=== PATIENT | male | born 1970 | race African-American/Black ===

== ENCOUNTER → 2018-03-24 | Outpatient (CLI) | payer OTHER, BC ==
--- NOTE | 2018-03-24 11:34 | RADIOLOGY REPORT (SQ) ---
EXAM DESCRIPTION: CHEST PA/LATERAL COMPLETED DATE/TIME: 03/24/2018 11:18 am REASON FOR STUDY: ENCOUNTER FOR OTHER PREPROCEDURAL EXAMINATION COMPARISON: 03/20/2010 EXAM PARAMETERS: NUMBER OF VIEWS: two views TECHNIQUE: Digital Frontal and Lateral radiographic views of the chest acquired. RADIATION DOSE: NA LIMITATIONS: none FINDINGS: LUNGS AND PLEURA: No opacities, masses or pneumothorax. No pleural effusion. MEDIASTINUM AND HILAR STRUCTURES: No masses or contour abnormalities. HEART AND VASCULAR STRUCTURES: Heart normal size. No evidence for failure. BONES: No acute findings. HARDWARE: None in the chest. OTHER: No other significant finding. IMPRESSION: 1 No significant interval changes since the prior examination dated 03/20/2010. No acute findings. TECHNICAL DOCUMENTATION: JOB ID: [id number] [employer]- All Rights Reserved Reading location - IP/workstation name: [email or web address]
[2018-03-24 11:57] LABS: ABSOLUTE EOSINOPHILS # (AUTO) 0.2 10^3/uL (0.0-0.6); ABSOLUTE LYMPHOCYTES (AUTO) 2.3 10^3/uL (0.5-4.7); ABSOLUTE MONOCYTES (AUTO) 0.5 10^3/uL (0.1-1.4); ABSOLUTE NEUT (AUTO) 2.7 10^3/uL (1.7-8.2); BASOPHILS % (AUTO) 0.7 % (0-2); HEMATOCRIT 41.7 % (37.9-51.0); HEMOGLOBIN 13.9 g/dL (13.5-17.0); LYMPHOCYTES % (AUTO) 39.8 % (13-45); MEAN CORPUSCULAR HEMOGLOBIN 28.2 pg (27.0-33.4); MEAN CORPUSCULAR HGB CONC 33.4 g/dL (32.0-36.0); MEAN CORPUSCULAR VOLUME 84 fl (80-97); MONOCYTES % (AUTO) 8.3 % (3-13); PLATELET COUNT 176 10^3/uL (150-450); RED BLOOD COUNT 4.94 10^6/uL (4.35-5.55); RED CELL DISTRIBUTION WIDTH 12.9 % (11.5-14.0); SEGMENTED NEUTROPHILS % (AUTO) 48.2 % (42-78); TOTAL CELLS COUNTED % (AUTO) 100 %; WHITE BLOOD COUNT 5.7 10^3/uL (4.0-10.5)
[2018-03-24 12:03] LABS: APPEARANCE,URINE CLEAR; BILIRUBIN,URINE NEGATIVE (NEGATIVE); COLOR,URINE YELLOW; GLUCOSE, URINE >=500 mg/dL (NEGATIVE); KETONES,URINE NEGATIVE (NEGATIVE); LEUKOCYTE ESTERASE,URINE NEGATIVE (NEGATIVE); NITRITE,URINE NEGATIVE (NEGATIVE); PROTEIN,URINE NEGATIVE (NEGATIVE); URINE SPECIFIC GRAVITY 1.014; UROBILINOGEN,URINE NEGATIVE mg/dL (<2.0)
[2018-03-24 12:32] LABS: ANION GAP 12 (5-19); BLOOD UREA NITROGEN 15 mg/dL (7-20); CALCIUM 9.9 mg/dL (8.4-10.2); CARBON DIOXIDE 31 mmol/L (22-30); CHLORIDE 97 mmol/L (98-107); GLUCOSE 255 mg/dL (75-110); POTASSIUM 4.3 mmol/L (3.6-5.0); SODIUM 139.9 mmol/L (137-145)
--- NOTE | 2018-03-24 12:45 | EKG REPORT ---
SEVERITY:- NORMAL ECG - SINUS RHYTHM : Confirmed by: Porfirio Hou MD 24-Mar-2018 12:44:24
== END ==
LOC: OD 10:25
PROVIDERS: ATTEND Orthopaedic Surgery
DX: Z01.818 Encounter for other preprocedural examination (principal); E11.9 Type 2 diabetes mellitus without complications
CPT/HCPCS: 36415; 71046; 80048; 81001; 83036; 85025; 93005; 93010

== ENCOUNTER 2018-04-21 08:45 | Inpatient (IN) | payer OTHER, BC ==
[2018-05-19] MEDS ORDERED: VANCOMYCIN HCL 1,000 MG in DEXTROSE 5%-WATER 250 ML IV PRN (05:00)
[2018-05-19] MEDS ORDERED: BUPIVACAINE INJ/PF LIPOSOME/PF 266 MG/20 ML SDV IJ PRN (05:00)
[2018-05-19] MEDS ORDERED: IBUPROFEN 800 MG/NS 250 ML IV PRN ×2 (05:00)
[2018-05-19] MEDS ORDERED: LACTATED RINGERS 1000 ML IV PRN (05:00)
[2018-05-19] MEDS ORDERED: LANSOPRAZOLE 15 MG TAB.RAP.DR PO PRN (05:00)
[2018-05-19] MEDS ORDERED: CEFAZOLIN INJ 1 GM VIAL IV PRN (05:00)
[2018-05-19] MEDS ORDERED: OXYCODONE HCL SR 10 MG TABLET PO PRN (05:00)
[2018-05-19] MEDS ORDERED: LIDOCAINE 0.5% INJ-PF (5 MG/ML) 50 ML SDV SUBCUT PRN (05:00)
[2018-05-19] MEDS ORDERED: OXYCODONE HCL SR 10 MG TABLET PO ONE (05:33)
[2018-05-19] MEDS ORDERED: LANSOPRAZOLE 15 MG TAB.RAP.DR ONE (05:33)
[2018-05-19] MEDS ORDERED: LIDOCAINE 2% INJ-PF (20 MG/ML) 10 ML AMPUL ONE (06:11)
[2018-05-19] MEDS ORDERED: FENTANYL CITRATE INJ/PF 100 MCG/2 ML AMPUL ONE (06:12)
[2018-05-19] MEDS ORDERED: ACETAMINOPHEN 1,000 MG/100 ML RTUPB IV ONE (06:12)
[2018-05-19] MEDS ORDERED: PROPOFOL INJ 200 MG/20 ML VIAL IV ONE (06:12)
[2018-05-19] MEDS ORDERED: ONDANSETRON HCL INJ/PF 4 MG/2 ML SDV ONE (06:12)
[2018-05-19] MEDS ORDERED: MIDAZOLAM 2 MG/2 ML INJ ONE (06:12)
[2018-05-19] MEDS ORDERED: BUPIVACAINE HCL/DEX-WATER/PF 15 MG/2 ML AMPULE ONE (06:14)
[2018-05-19 06:17] LABS: POTASSIUM 3.6 mmol/L (3.6-5.0)
[2018-05-19] MEDS ORDERED: CEFAZOLIN INJ 1 GM VIAL ONE (06:20)
--- NOTE | 2018-05-19 06:49 | EKG REPORT ---
SEVERITY:- NORMAL ECG - SINUS RHYTHM : Confirmed by: Jen Smith 19-May-2018 06:48:26
[2018-05-19] MEDS ORDERED: THROMBIN (BOVINE) 5000 UNIT EPITAXIS KIT ONE (07:07)
[2018-05-19] MEDS ORDERED: THROMBIN (BOVINE) TOPICAL 20000 UNIT VIAL ONE (07:07)
[2018-05-19] MEDS ORDERED: BUPIVACAINE INJ/PF LIPOSOME/PF 266 MG/20 ML SDV ONE (07:08)
[2018-05-19] MEDS ORDERED: METOPROLOL TARTRATE 25 MG TABLET ONE (07:16)
[2018-05-19] MEDS ORDERED: FENTANYL CITRATE INJ/PF 100 MCG/2 ML AMPUL IV PRN ×3 (08:21)
[2018-05-19] MEDS ORDERED: MEPERIDINE HCL/PF INJ 25 MG/1 ML DISP.SYRIN IV PRN (08:21)
[2018-05-19] MEDS ORDERED: DIPHENHYDRAMINE HCL 50 MG/ML VIAL IV PRN ×2 (08:21→09:19)
[2018-05-19] MEDS ORDERED: PROMETHAZINE HCL INJ 25 MG/1 ML VIAL IV PRN ×2 (08:21)
[2018-05-19] MEDS ORDERED: ONDANSETRON HCL INJ/PF 4 MG/2 ML SDV IV PRN ×2 (08:21→09:19)
[2018-05-19] MEDS ORDERED: MORPHINE SULFATE 10 MG/ML INJ IV PRN ×4 (08:21→09:19)
[2018-05-19] MEDS ORDERED: SUCCINYLCHOLINE CHLORIDE INJ 200 MG/10 ML VIAL ONE (09:12)
[2018-05-19] MEDS ORDERED: ONDANSETRON 4 MG TAB.RAPDIS PO PRN (09:19)
[2018-05-19] MEDS ORDERED: ACETAMINOPHEN 325 MG TABLET PO PRN (09:19)
[2018-05-19] MEDS ORDERED: OXYCODONE HCL IR 5 MG TABLET PO PRN (09:19)
[2018-05-19] MEDS ORDERED: MORPHINE SULFATE 10 MG/ML INJ IM PRN (09:19)
[2018-05-19] MEDS ORDERED: ZOLPIDEM TARTRATE 5 MG TABLET PO PRN (09:19)
[2018-05-19] MEDS ORDERED: MAG HYDROX/AL HYDROX/SIMETH SUSP 30 ML UDCUP PO PRN (09:19)
--- NOTE | 2018-05-19 09:19 | Operative Report ---
Operative Report DATE OF SURGERY: 05/19/18 PREOPERATIVE DIAGNOSIS: Right knee arthritis OPERATION: Right knee arthroplasty SURGEON: SUZANNE WHITFIELD ANESTHESIA: GA TISSUE REMOVED OR ALTERED: Bone to pathology ESTIMATED BLOOD LOSS: 100 PROCEDURE: Implants used: Femur: Palmer triathlon size 8 CR femur Tibia: 7 tibia Tibial liner: 11 mm CS insert Patella: 40 mm oval patella Procedure with the patient supine on the operating table the right the limb is prepped and draped in a sterile fashion. The limb was elevated for exsanguination and the tourniquet inflated to 280 torr. A standard midline median parapatellar approach the knee is taken. Access is gained to the femoral canal through the intercondylar notch. Intramedullary alignment instrumentation used to resect 10 mm of distal femur in 5 of valgus. Sizing guide indicated a size 8 femur. Appropriate cutting jig is then used to fashion anterior posterior and chamfer cuts. A trial reduction femurs performed and this is judged to be adequate. Attention was next turned to the tibia. Using an extra medullary alignment system 11 millimeters was resected off the lateral tibial plateau make up for medial plateau defect. This is sized to a size 7 tibia. All a size 8 patella would fit onto the plateau in an anterior to posterior dimension it was left being proud anteriorly and a decision was made to downsize to a 7. A trial reduction was now performed with a 8 femur and a 7 tibia using a 11 millimeters spacer. It is full extension and central patellofemoral tracking. The articular surface the patella was next resected using an oscillating saw. All trial implants were removed. Polymethylmethacrylate is mixed and used to cement the above implants in place. On adequate curing the cement excess cement was removed. A lateral patellar retinacular release was performed. The tourniquet was deflated hemostasis obtained the wound is then closed in layers using interrupted Vicryl followed by candy. A sterile compressive dressing was applied and the patient returned to recovery room in satisfactory condition.
[2018-05-19] MEDS ORDERED: DEXTROSE 50%-WATER SYRINGE 25 GM/50 ML DOSE IV PRN (09:54)
[2018-05-19] MEDS ORDERED: GLUCAGON,HUMAN RECOMB 1 MG INJ IM PRN (09:54)
[2018-05-19] MEDS ORDERED: DEXTROSE 40% GEL 15 GM TUBE X 2 PO PRN (09:54)
[2018-05-19] MEDS ORDERED: DEXTROSE 40% GEL 15 GM TUBE PO PRN (09:54)
[2018-05-19] MEDS ORDERED: DEXTROSE 50%-WATER SYRINGE 12.5 GM/25 ML DOSE IV PRN (09:54)
[2018-05-19] MEDS ORDERED: (PENDING PHARMACY ID) (Losartan/Hydrochlorothiazide [Losartan-Hctz 100-25 Mg Tab] 1 TAB) PO SCH (10:00)
[2018-05-19] MEDS ORDERED: METOPROLOL TARTRATE 100 MG TABLET PO SCH (10:00)
[2018-05-19] MEDS ORDERED: (PENDING PHARMACY ID) (Metformin Hcl [Metformin Hcl Er] 1,000 MG) PO SCH (10:00)
[2018-05-19] MEDS ORDERED: TRANEXAMIC ACID INJ/PF 1,000 MG/10 ML SDV IV ONE ×2 (10:23→10:30)
--- NOTE | 2018-05-19 10:56 | RADIOLOGY REPORT (SQ) ---
EXAM DESCRIPTION: KNEE RIGHT 2 VIEWS COMPLETED DATE/TIME: 05/19/2018 10:46 am REASON FOR STUDY: Post OP -Long Cassette in PACU M17.11 UNILATERAL PRIMARY OSTEOARTHRITIS, RIGHT KN EE COMPARISON: None. NUMBER OF VIEWS: Two views TECHNIQUE: Digital radiographic images of the right knee post-procedure. LIMITATIONS: None. FINDINGS: BONES: No worrisome or unexpected findings post-procedure. DEVICE: Right total knee replacement with patellar resurfacing. SOFT TISSUES: No worrisome findings. Expected postoperative soft tissue changes. IMPRESSION: SATISFACTORY POSTOPERATIVE RIGHT KNEE. TECHNICAL DOCUMENTATION: JOB ID: [id number] [employer]- All Rights Reserved Reading location - IP/workstation name: [email or web address]
[2018-05-19] MEDS: RINGERS SOLUTION,LACTATED 1,000 ML IV PRN ×2 (11:15→18:53)
[2018-05-19] MEDS: IBUPROFEN 800 MG in NORMAL SALINE 250 ML IV SCH ×2 (14:26→21:09)
[2018-05-19] MEDS: METFORMIN HCL 500 MG TABLET PO SCH (17:12)
[2018-05-19] MEDS: INSULIN LISPRO 100 UNIT/ML 3 ML VIAL SUBCUT PRN (17:12)
[2018-05-19] MEDS: GLIPIZIDE 10 MG TABLET PO SCH (17:12)
[2018-05-19] MEDS: SENNOSIDES/DOCUSATE 8.6-50 MG 1 EACH TABLET PO SCH (17:39)
[2018-05-19] MEDS: OXYCODONE HCL SR 10 MG TABLET PO SCH (21:03)
[2018-05-19] MEDS: GABAPENTIN 300 MG CAPSULE PO SCH (21:05)
[2018-05-19] MEDS: METOPROLOL TARTRATE 100 MG TABLET PO SCH (21:06)
[2018-05-19] MEDS ORDERED: VANCOMYCIN HCL 1,000 MG in DEXTROSE 5%-WATER 250 ML IV ONE (21:20)
[2018-05-20] MEDS: IBUPROFEN 800 MG in NORMAL SALINE 250 ML IV SCH ×3 (05:48→21:12)
[2018-05-20] MEDS: LANSOPRAZOLE 30 MG TAB.RAP.DR PO SCH (05:50)
[2018-05-20 05:55] LABS: HEMATOCRIT 27.9 % (37.9-51.0); HEMOGLOBIN 9.7 g/dL (13.5-17.0); MEAN CORPUSCULAR HEMOGLOBIN 29.4 pg (27.0-33.4); MEAN CORPUSCULAR HGB CONC 34.6 g/dL (32.0-36.0); MEAN CORPUSCULAR VOLUME 85 fl (80-97); PLATELET COUNT 179 10^3/uL (150-450); RED BLOOD COUNT 3.28 10^6/uL (4.35-5.55); RED CELL DISTRIBUTION WIDTH 13.1 % (11.5-14.0); WHITE BLOOD COUNT 9.5 10^3/uL (4.0-10.5)
[2018-05-20] MEDS: RINGERS SOLUTION,LACTATED 1,000 ML IV PRN (05:58)
[2018-05-20 06:23] LABS: ANION GAP 5 (5-19); BLOOD UREA NITROGEN 11 mg/dL (7-20); CALCIUM 8.5 mg/dL (8.4-10.2); CARBON DIOXIDE 28 mmol/L (22-30); CHLORIDE 103 mmol/L (98-107); GLUCOSE 182 mg/dL (75-110); POTASSIUM 3.8 mmol/L (3.6-5.0); SODIUM 135.5 mmol/L (137-145)
--- NOTE | 2018-05-20 07:03 | PDOC PROGRESS REPORT ---
Subjective Progress Note for:: 05/20/18 Reason For Visit: M17.11 UNILATERAL PRIMARY OSTEOARTHRITIS, RIGHT KN 47-year-old black male postop day 1 right knee arthroplasty. Patient with limited progress yesterday with physical therapy presumed because of residual anesthesia effects from a general anesthetic. Physical Exam Vital Signs: Temp Pulse Resp BP Pulse Ox 37.8 C 87 18 109/50 L 100 05/20/18 00:02 05/20/18 00:02 05/20/18 00:02 05/20/18 00:02 05/20/18 00:02 Intake & Output 05/19/18 05/20/18 05/21/18 06:59 06:59 06:59 Intake Total 0 7780 Output Total 4150 Balance 0 3630 Weight 151.5 kg General appearance: PRESENT: no acute distress, mild distress, other - Complains of right thigh pain presumably secondary to tourniquet use Respiratory exam: PRESENT: unlabored Cardiovascular exam: PRESENT: RRR Pulses: PRESENT: +1 pedal pulses bilateral Vascular exam: PRESENT: normal capillary refill GI/Abdominal exam: PRESENT: soft Rectal exam: PRESENT: deferred Extremities exam: PRESENT: other - Right lower extremity dressing clean dry and intact. Distal neurovascular examination is intact. Neurological exam: PRESENT: alert, awake, oriented to person, oriented to place , oriented to time, oriented to situation. ABSENT: motor sensory deficit Psychiatric exam: PRESENT: appropriate affect, normal mood. ABSENT: homicidal ideation, suicidal ideation Skin exam: PRESENT: dry, intact, warm. ABSENT: cyanosis, rash Results Laboratory Results: 05/20/18 05:17 05/20/18 05:17 05/20/18 05/20/18 05:17 05:17 WBC 9.5 RBC 3.28 L Hgb 9.7 L Hct 27.9 L MCV 85 MCH 29.4 MCHC 34.6 RDW 13.1 Plt Count 179 Sodium 135.5 L Potassium 3.8 Chloride 103 Carbon Dioxide 28 Anion Gap 5 BUN 11 Creatinine 0.83 Est GFR ( Amer) > 60 Est GFR (Non-Af Amer) > 60 Glucose 182 H Calcium 8.5 Impressions: Knee X-Ray 05/19/18 09:21 IMPRESSION: SATISFACTORY POSTOPERATIVE RIGHT KNEE. Status: Imported from PACS Assessment & Plan - Diagnosis (1) Arthritis of right knee Is this a current diagnosis for this admission?: Yes Plan: Patient postop day 1 right knee arthroplasty. He will mobilized with physical therapy today and weightbearing as tolerated basis. Discharge planning pending functional analysis by physical therapy. I have encouraged consideration of discharge home with home health services as opposed to a penitentiary facility. - Time Time Spent with patient: 15-24 minutes Anticipated discharge: Other Within: Other
[2018-05-20] MEDS: METFORMIN HCL 500 MG TABLET PO SCH ×2 (08:04→17:37)
[2018-05-20] MEDS: ASPIRIN 81 MG TABLET, ENT COATED PO SCH (09:48)
[2018-05-20] MEDS: LOSARTAN POTASSIUM 50 MG TABLET PO SCH (09:48)
[2018-05-20] MEDS: GLIPIZIDE 10 MG TABLET PO SCH ×2 (09:49→17:37)
[2018-05-20] MEDS: HYDROCHLOROTHIAZIDE 25 MG TABLET PO SCH (09:50)
[2018-05-20] MEDS: PRENATAL VITAMIN W DHA CAPSULE PO SCH (09:50)
[2018-05-20] MEDS: OXYCODONE HCL SR 10 MG TABLET PO SCH ×2 (09:51→21:19)
[2018-05-20] MEDS: METOPROLOL TARTRATE 100 MG TABLET PO SCH ×2 (09:51→21:12)
[2018-05-20] MEDS: SENNOSIDES/DOCUSATE 8.6-50 MG 1 EACH TABLET PO SCH ×2 (09:51→17:37)
[2018-05-20] MEDS: GABAPENTIN 300 MG CAPSULE PO SCH ×2 (09:52→21:11)
[2018-05-21] MEDS: IBUPROFEN 800 MG in NORMAL SALINE 250 ML IV SCH (05:16)
[2018-05-21] MEDS: LANSOPRAZOLE 30 MG TAB.RAP.DR PO SCH (05:17)
[2018-05-21 06:43] LABS: HEMATOCRIT 25.7 % (37.9-51.0); HEMOGLOBIN 8.8 g/dL (13.5-17.0); MEAN CORPUSCULAR HEMOGLOBIN 29.2 pg (27.0-33.4); MEAN CORPUSCULAR HGB CONC 34.4 g/dL (32.0-36.0); MEAN CORPUSCULAR VOLUME 85 fl (80-97); PLATELET COUNT 152 10^3/uL (150-450); RED BLOOD COUNT 3.03 10^6/uL (4.35-5.55); RED CELL DISTRIBUTION WIDTH 13.1 % (11.5-14.0); WHITE BLOOD COUNT 9.2 10^3/uL (4.0-10.5)
--- NOTE | 2018-05-21 07:00 | PDOC DISCHARGE SUMMARY ---
General - Admit/Disc Date/PCP Admission Date/Primary Care Provider: 05/19/18 05:21 JENNIFER WELSH DO Discharge Date: 05/21/18 - Discharge Diagnosis (1) Arthritis of right knee Is this a current diagnosis for this admission?: Yes - Additional Information Resuscitation Status: Full Code Home Medications: Gabapentin 600 mg PO BID 03/24/18 Glipizide 10 mg PO BID 03/24/18 Losartan/Hydrochlorothiazide [Losartan-Hctz 100-25 mg Tab] 1 tab PO DAILY Metformin HCl [Metformin HCl ER] 1,000 mg PO BID 03/24/18 Metoprolol Tartrate 100 mg PO BID 03/24/18 [place]-3 Fatty Acids/Fish Oil [Fish Oil 1,000 mg Capsule] 1,000 mg PO DAILY 03/24 Vitamin E 1,000 units PO DAILY 03/24/18 History of Present Illness History of Present Illness: EMANI ALBERTS is a 47 year old male Patient is a 47-year-old black male with progressive bilateral knee pain and functional disability is admitted for elective total knee arthroplasty. Hospital Course Hospital Course: Patient is admitted through the operating where he undergoes uncomplicated right knee arthroplasty. Is returned to floor in satisfactory condition. He makes progress with physical therapy ambulating 150 feet on postop day 1. Compressive dressing is removed on postop day 1 and the underlying OpSite dressing is clean dry and intact. There is minimal pedal edema. Distal neurovascular examination is intact. Physical Exam Vital Signs: Temp Pulse Resp BP Pulse Ox 37.2 C 88 18 106/58 L 100 05/20/18 23:20 05/20/18 23:20 05/20/18 23:20 05/20/18 23:20 05/20/18 23:20 Intake & Output 05/19/18 05/20/18 05/21/18 06:59 06:59 06:59 Intake Total 0 7780 3078 Output Total 4150 600 Balance 0 3630 2478 Weight 151.5 kg General appearance: PRESENT: no acute distress, mild distress, obese Head exam: PRESENT: normocephalic Respiratory exam: PRESENT: unlabored Cardiovascular exam: PRESENT: RRR Pulses: PRESENT: +1 pedal pulses bilateral Vascular exam: PRESENT: normal capillary refill GI/Abdominal exam: PRESENT: soft Rectal exam: PRESENT: deferred Extremities exam: PRESENT: other - Right knee OpSite dressing is clean dry and intact. Minimal pedal edema. Distal neurovascular examination is intact. Neurological exam: PRESENT: alert, awake, oriented to person, oriented to place , oriented to time, oriented to situation. ABSENT: motor sensory deficit Psychiatric exam: PRESENT: appropriate affect, normal mood. ABSENT: homicidal ideation, suicidal ideation Skin exam: PRESENT: dry, intact, warm. ABSENT: cyanosis, rash Results Laboratory Results: 05/21/18 06:33 05/20/18 05:17 05/21/18 06:33 WBC 9.2 RBC 3.03 L Hgb 8.8 L Hct 25.7 L MCV 85 MCH 29.2 MCHC 34.4 RDW 13.1 Plt Count 152 Impressions: Knee X-Ray 05/19/18 09:21 IMPRESSION: SATISFACTORY POSTOPERATIVE RIGHT KNEE. Status: Imported from PACS Qualifiers - * PATIENT BEING DISCHARGED WITH ANY OF THE FOLLOWING DIAGNOSIS: No VTE patient discharged on overlapping Therapy?: Yes Plan Discharge Plan: Patient to be seen by social work for home health services and DME. Follow-up with Dr. [facility] for surgery in 2 weeks for staple removal. Time Spent: Less than 30 Minutes
[2018-05-21] MEDS: INSULIN LISPRO 100 UNIT/ML 3 ML VIAL SUBCUT PRN ×2 (08:58→12:49)
[2018-05-21] MEDS: METFORMIN HCL 500 MG TABLET PO SCH (08:59)
[2018-05-21] MEDS: SENNOSIDES/DOCUSATE 8.6-50 MG 1 EACH TABLET PO SCH (09:01)
[2018-05-21] MEDS: METOPROLOL TARTRATE 100 MG TABLET PO SCH (09:01)
[2018-05-21] MEDS: ASPIRIN 81 MG TABLET, ENT COATED PO SCH (09:01)
[2018-05-21] MEDS: GABAPENTIN 300 MG CAPSULE PO SCH (09:01)
[2018-05-21] MEDS: PRENATAL VITAMIN W DHA CAPSULE PO SCH (09:01)
[2018-05-21] MEDS: HYDROCHLOROTHIAZIDE 25 MG TABLET PO SCH (09:01)
[2018-05-21] MEDS: GLIPIZIDE 10 MG TABLET PO SCH (09:02)
[2018-05-21] MEDS: LOSARTAN POTASSIUM 50 MG TABLET PO SCH (09:02)
[2018-05-21] MEDS: OXYCODONE HCL SR 10 MG TABLET PO SCH ×2 (09:02→09:05)
[2018-05-21 11:33] VITALS: BP 130/61
== END 2018-05-21 13:23 | disposition hospice, home (50) | DRG 470 ==
LOC: INOR 05-19 05:21 → 4S 05-19 10:56
PROVIDERS: ADMIT Orthopaedic Surgery; ATTEND Orthopaedic Surgery
PROC: 0SRC0J9 Replacement of Right Knee Joint with Synthetic Substitute, Cemented, Open Approach (ICD-10-PCS; principal; 2018-05-19 07:30)
DX: M17.11 Unilateral primary osteoarthritis, right knee (principal); Z68.41 Body mass index [BMI] 40.0-44.9, adult; I10 Essential (primary) hypertension; E11.42 Type 2 diabetes mellitus with diabetic polyneuropathy; E66.9 Obesity, unspecified; Z79.899 Other long term (current) drug therapy
CPT/HCPCS: 01402; 36415; 80048; 82947; 82962; 84132; 85027; 88305; 88311; 93005; 93010; 94799; C1713; C1776; C9290; J0131; J0330; J0690; J1741; J1815; J2250; J2405; J2704; J3010; J3370; J3490; J7050; J7060; J7120

== ENCOUNTER → 2018-05-06 | Outpatient (CLI) | payer OTHER, BC ==
[2018-05-06 10:48] LABS: ABSOLUTE EOSINOPHILS # (AUTO) 0.2 10^3/uL (0.0-0.6); ABSOLUTE LYMPHOCYTES (AUTO) 2.4 10^3/uL (0.5-4.7); ABSOLUTE MONOCYTES (AUTO) 0.4 10^3/uL (0.1-1.4); ABSOLUTE NEUT (AUTO) 3.1 10^3/uL (1.7-8.2); BASOPHILS % (AUTO) 0.6 % (0-2); EOSINOPHILS % (AUTO) 3.3 % (0-6); HEMATOCRIT 38.4 % (37.9-51.0); HEMOGLOBIN 12.9 g/dL (13.5-17.0); LYMPHOCYTES % (AUTO) 38.9 % (13-45); MEAN CORPUSCULAR HEMOGLOBIN 28.9 pg (27.0-33.4); MEAN CORPUSCULAR HGB CONC 33.7 g/dL (32.0-36.0); MEAN CORPUSCULAR VOLUME 86 fl (80-97); MONOCYTES % (AUTO) 6.7 % (3-13); PLATELET COUNT 213 10^3/uL (150-450); RED BLOOD COUNT 4.48 10^6/uL (4.35-5.55); RED CELL DISTRIBUTION WIDTH 12.9 % (11.5-14.0); SEGMENTED NEUTROPHILS % (AUTO) 50.5 % (42-78); TOTAL CELLS COUNTED % (AUTO) 100 %; WHITE BLOOD COUNT 6.2 10^3/uL (4.0-10.5)
[2018-05-06 11:19] LABS: ANION GAP 11 (5-19); BLOOD UREA NITROGEN 13 mg/dL (7-20); CARBON DIOXIDE 28 mmol/L (22-30); CHLORIDE 102 mmol/L (98-107); GLUCOSE 150 mg/dL (75-110); SODIUM 140.9 mmol/L (137-145)
--- NOTE | 2018-05-06 11:23 | RADIOLOGY REPORT (SQ) ---
EXAM DESCRIPTION: CHEST PA/LATERAL COMPLETED DATE/TIME: 05/06/2018 11:06 am REASON FOR STUDY: PRE-OP COMPARISON: 03/24/2018 EXAM PARAMETERS: NUMBER OF VIEWS: two views TECHNIQUE: Digital Frontal and Lateral radiographic views of the chest acquired. RADIATION DOSE: NA LIMITATIONS: none FINDINGS: LUNGS AND PLEURA: Low lung volumes. No opacities, masses or pneumothorax. No pleural eff usion. MEDIASTINUM AND HILAR STRUCTURES: No masses or contour abnormalities. HEART AND VASCULAR STRUCTURES: Heart normal size. No evidence for failure. BONES: No acute findings. HARDWARE: None in the chest. OTHER: No other significant finding. IMPRESSION: 1. No significant interval changes since the prior examination dated 03/24/2018. No acu te findings. TECHNICAL DOCUMENTATION: JOB ID: [id number] [employer]- All Rights Reserved Reading location - IP/workstation name: [email or web address]
[2018-05-06 15:10] LABS: APPEARANCE,URINE SLIGHTLY-CLOUDY; BILIRUBIN,URINE NEGATIVE (NEGATIVE); COLOR,URINE YELLOW; GLUCOSE, URINE NEGATIVE (NEGATIVE); KETONES,URINE NEGATIVE (NEGATIVE); LEUKOCYTE ESTERASE,URINE NEGATIVE (NEGATIVE); NITRITE,URINE NEGATIVE (NEGATIVE); PROTEIN,URINE NEGATIVE (NEGATIVE); URINE SPECIFIC GRAVITY 1.024; UROBILINOGEN,URINE NEGATIVE mg/dL (<2.0)
--- NOTE | 2018-05-06 16:59 | EKG REPORT ---
SEVERITY:- ABNORMAL ECG - SINUS RHYTHM NONSPECIFIC INTRAVENTRICULAR CONDUCTION DELAY : Confirmed by: Suzie Ybarra MD 06-May-2018 16:58:18
== END ==
LOC: OD 09:33
PROVIDERS: ATTEND Orthopaedic Surgery
DX: Z01.818 Encounter for other preprocedural examination (principal); E11.9 Type 2 diabetes mellitus without complications
CPT/HCPCS: 36415; 71046; 80048; 81001; 83036; 85025; 93005; 93010